=== PATIENT | male | born 1975 | race Caucasian/White ===

== ENCOUNTER 2017-08-11 11:21 | Emergency (ER) | payer MEDICARE, OTHER ==
[~2017-08-11] VITALS: Ht 175.3 cm; Wt 86.0 kg
[~2017-08-11 11:21] MED LIST: ADDE20 PO; ALPR.5 PO; LITH300C2 PO; RALT400 PO; TRUV200300 PO
[2017-08-11 11:39] VITALS: BP 121/84; PULSE 75; RESP 16; TEMP 98.4; O2SAT 98
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
[2017-08-11 12:49] LABS: AUTOMATED NEUTROPHIL # 5.9 TH/MM3 (1.8-7.7); BASOPHIL # 0.1 TH/MM3 (0-0.2); BASOPHIL % 1.1 % (0.0-2.0); EOSINOPHIL # 0.4 TH/MM3 (0-0.4); EOSINOPHIL % 3.5 % (0.0-4.0); HEMATOCRIT 43.2 % (39.0-51.0); HEMO FLAGS DIFF FINAL; LYMPH % 23.2 % (9.0-44.0); LYMPHOCYTE # 2.3 TH/MM3 (1.0-4.8); MEAN CELL VOLUME 87.8 FL (80.0-100.0); MEAN CORPUSCULAR HEMOGLOBIN 30.3 PG (27.0-34.0); MEAN CORPUSCULAR HGB CONC 34.6 % (32.0-36.0); MONO % 13.4 % (0.0-8.0); NEUT % 58.8 % (16.0-70.0); PLATELET COUNT 236 TH/MM3 (150-450); RED BLOOD COUNT 4.92 MIL/MM3 (4.50-5.90); RED CELL DISTRIBUTION WIDTH 13.1 % (11.6-17.2); WHITE BLOOD COUNT 10.1 TH/MM3 (4.0-11.0)
[2017-08-11 13:15] LABS: ANION GAP 9 MEQ/L (5-15); AST (GOT) 29 U/L (15-37); BICARBONATE 21.7 MEQ/L (21.0-32.0); BLOOD UREA NITROGEN 19 MG/DL (7-18); CHLORIDE 108 MEQ/L (98-107); GLOMERULAR FILTRATION RATE 86 ML/MIN (>89); POTASSIUM 3.6 MEQ/L (3.5-5.1); SODIUM (NA) 139 MEQ/L (136-145)
[2017-08-11 13:16] LABS: ALT (GPT) 26 U/L (12-78)
[2017-08-11 13:18] LABS: ALKALINE PHOSPHATASE 100 U/L (45-117); TOTAL BILIRUBIN ADULT 0.7 MG/DL (0.2-1.0)
[2017-08-11 13:24] LABS: ACETAMINOPHEN LESS THAN 2.0 MCG/ML (10.0-30.0); ALCOHOL LESS THAN 3 MG/DL (0-5)
[2017-08-11 16:50] VITALS: BP 128/69; PULSE 93; RESP 18; TEMP 99.1; O2SAT 98
[2017-08-12 06:20] VITALS: BP 132/74; PULSE 67; RESP 18
[2017-08-12 10:12] VITALS: BP 112/62; PULSE 71; RESP 18; TEMP 97.6; O2SAT 96
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
--- NOTE | 2017-08-12 10:48 | PD ---
Physical Exam Time Seen by Provider: 10:[address] Chacon has evaluated the patient, lifted the Rivera act and cleared the patient for discharge. Data Data Last Documented VS Vital Signs Date Time Temp Pulse Resp B/P (MAP) Pulse Ox O2 Delivery O2 Flow Rate FiO2 08/12/17 10:12 97.6 71 18 112/62 (79) 96 Room Air Orders Orders Complete Blood Count With Diff (08/11/17 12:06) Comprehensive Metabolic Panel (08/11/17 12:06) Psych Screen (08/11/17 12:06) Drug Screen, Random Urine (08/11/17 12:06) Alcohol (Ethanol) (08/11/17 12:06) Salicylates (Aspirin) (08/11/17 12:06) Tylenol (Acetaminophen) (08/11/17 12:06) [place] (Li) (08/11/17 14:31) Diet Regular Basic (08/11/17 Dinner) Diet Regular Basic (08/12/17 Breakfast) Labs Laboratory Tests Test 08/11/17 12:15 08/12/17 06:25 White Blood Count 10.1 TH/MM3 Red Blood Count 4.92 MIL/MM3 Hemoglobin 14.9 GM/DL Hematocrit 43.2 % Mean Corpuscular Volume 87.8 FL Mean Corpuscular Hemoglobin 30.3 PG Mean Corpuscular Hemoglobin Concent 34.6 % Red Cell Distribution Width 13.1 % Platelet Count 236 TH/MM3 Mean Platelet Volume 8.7 FL Neutrophils (%) (Auto) 58.8 % Lymphocytes (%) (Auto) 23.2 % Monocytes (%) (Auto) 13.4 % Eosinophils (%) (Auto) 3.5 % Basophils (%) (Auto) 1.1 % Neutrophils # (Auto) 5.9 TH/MM3 Lymphocytes # (Auto) 2.3 TH/MM3 Monocytes # (Auto) 1.4 TH/MM3 Eosinophils # (Auto) 0.4 TH/MM3 Basophils # (Auto) 0.1 TH/MM3 CBC Comment DIFF FINAL Differential Comment Blood Urea Nitrogen 19 MG/DL Creatinine 0.96 MG/DL Random Glucose 88 MG/DL Total Protein 8.3 GM/DL Albumin 4.3 GM/DL Calcium Level 8.9 MG/DL Alkaline Phosphatase 100 U/L Aspartate Amino Transf (AST/SGOT) 29 U/L Alanine Aminotransferase (ALT/SGPT) 26 U/L Total Bilirubin 0.7 MG/DL Sodium Level 139 MEQ/L Potassium Level 3.6 MEQ/L Chloride Level 108 MEQ/L Carbon Dioxide Level 21.7 MEQ/L Anion Gap 9 MEQ/L Estimat Glomerular Filtration Rate 86 ML/MIN Salicylates Level 2.5 MG/DL Acetaminophen Level LESS THAN 2.0 MCG/ML [place] Level LESS THAN 0.1 MEQ/L Ethyl Alcohol Level LESS THAN 3 MG/DL Urine Opiates Screen NEG Urine Barbiturates Screen NEG Urine Amphetamines Screen POS Urine Benzodiazepines Screen NEG Urine Cocaine Screen POS Urine Cannabinoids Screen NEG MDM Supervised Visit with CRISTOPHER: No Narrative Course Dr. Chacon has evaluated the patient, lifted the Rivera act and cleared the patient for discharge. Patient contracts safety. Denies suicidal or homicidal ideations. Patient will be provided community resource packet to [facility] for follow-up. Has friends and family for support. Patient was medically cleared by alternate provider prior to psych screening. Patient has been evaluated by psychiatry and and is now cleared for discharge. Diagnosis Primary Impression: Adjustment disorder with mixed disturbance of emotions and conduct Referrals: [facility] (Out patient) [facility] Primary Care Physician Psychiatrist Gabriela BROWN[facility] Patient Instructions: General Instructions, Mood Disorders (ED), Polysubstance Abuse (ED) Additional Instruction: Contract safety to your self and others Using drugs Follow-up with psychiatry Follow-up with primary care provider Follow-up with Franc Velazquez Return to the emergency department immediately with worsening of symptoms Med/Other Pt SpecificInfo: No Change to Meds, No Meds Exist/No RX given Disposition: 01 DISCHARGE HOME Condition: Stable Hermelinda Mclean Aug 12, 2017 10:48
== END 2017-08-12 11:30 | disposition home or self-care (01) ==
LOC: NEPD 11:21 → NEPJ 08-12 11:30
DX: F43.25 Adjustment disorder with mixed disturbance of emotions and conduct (principal); F31.9 Bipolar disorder, unspecified; F90.9 Attention-deficit hyperactivity disorder, unspecified type; F43.10 Post-traumatic stress disorder, unspecified; F41.9 Anxiety disorder, unspecified; F17.200 Nicotine dependence, unspecified, uncomplicated; Z86.19 Personal history of other infectious and parasitic diseases; Z21 Asymptomatic human immunodeficiency virus [HIV] infection status; Z79.899 Other long term (current) drug therapy
CPT/HCPCS: 80053; 80178; 80307; 85025; 99283